=== PATIENT | female | born 1985 | race African-American/Black ===

== ENCOUNTER 2017-02-27 03:05 | Emergency (ER) | payer OTHER ==
[~2017-02-27] VITALS: Ht 165.1 cm; Wt 91.2 kg
--- NOTE | ~2017-02-27 | CR195 ---
[facility] A Service of [facility] & [facility] RADIOLOGY TEXT RESULTS PATIENT: NILO DIXON LOCATION: SED : 85 UNIT #: [id number] AGE: [address]: Sherwin Cisneros MD SEX: F ORDER DR: [id number] [place] [id number] E MR#: [id number] Acc #: [id number] NAME: NILO DIXNO : 1985 SEX: F STUDY DATE/TIME: 02/27/2017 4:04 UNIT: SED ROOM: STUDY DESCRIPTION: Neck Soft Tissue Attending Physician: Sherwin Cisneros M.D. Ordering Physician: Sherwin Cisneros M.D. Primary Care Physician: Primary Care Physician No MEDICAL IMAGING REPORT This report is preliminary unless electronic signature is present. EXAM Soft tissue neck series, 02/27/2017 HISTORY 31-year-old female in the ED complaining of 2-week history of sore throat and neck swelling. TECHNIQUE AP and lateral soft tissue radiographs of the neck. FINDINGS The examination is negative. No visible epiglottis enlargement, airway narrowing, tracheal deviation or prevertebral soft tissue swelling. IMPRESSION Negative soft tissue neck series. Dictated by... Flaquito Brown M.D. THIS IS AN ELECTRONICALLY VERIFIED REPORT Flaquito Brown M.D. at 02/27/2017 6:08 AM DIRK/tiffany TD: 02/27/2017 05:00 JOB #: [id number] MEDICAL IMAGING REPORT Page 1 of 1
[2017-02-27] MEDS ORDERED: LISINOPRIL10 MG (03:17)
[2017-02-27] MEDS ORDERED: TOPAMAX (03:18)
== END 2017-02-27 04:32 | disposition home or self-care (01) ==
LOC: SED 03:05
DX: J06.9 Acute upper respiratory infection, unspecified (principal); I10 Essential (primary) hypertension; F17.200 Nicotine dependence, unspecified, uncomplicated; Z91.040 Latex allergy status
CPT/HCPCS: 70360; 87651; 99283